=== PATIENT | female | born 1930 | race Caucasian/White ===

== ENCOUNTER 2016-11-26 13:49 | Emergency (ER) | payer OTHER ==
--- NOTE | 2016-11-26 14:17 | EDPHY ---
H & P Stated Complaint: F[place] [facility] [place] [facility] [place] HEAD AND R WRIST/DENIES LOC OR NECK PAIN - Personal History Current Tetanus/Diphtheria Vaccine: Yes Tetanus Vaccine Date: < 10 YRS - Medical/Surgical History Hx Asthma: No Hx Chronic Respiratory Disease: No Hx Diabetes: No Hx Cardiac Disease: No Hx Renal Disease: No Hx Cirrhosis: No Hx Alcoholism: No Hx HIV/AIDS: No Hx Splenectomy or Spleen Trauma: No Other PMH: hip and knee surgery - Social History Smoking Status: Never smoked Time Seen by Provider: 11/26/16 14:07 HPI/ROS: CHIEF COMPLAINT: Mechanical fall hit head, right wrist pain and head injury HISTORY OF PRESENT ILLNESS: 86-year-old female with no anticoagulant use sustained a purely mechanical fall when she tripped on a speed bump in the parking lot of [facility] when she was EN route to have a mammogram performed. She fell on outstretched right hand and is complaining of right wrist pain and also impacted her right frontal region of her head with no loss of consciousness. No nausea or vomiting. No midline C-spine pain. No peripheral paresthesia, weakness, numbness. No chest pain. No dyspnea. Tetanus up-to-date PRIMARY CARE PROVIDER:Dr. Ruby Waldrop, [facility] REVIEW OF SYSTEMS: A ten point review of systems was performed and is negative with the exception of the items mentioned in the HPI PAST MEDICAL/SURGICAL HISTORY: no anticoagulant use SOCIAL HISTORY: denies alcohol use at time of incident PHYSICAL EXAM 1) GENERAL: Well-developed, well-nourished, alert and oriented. Appears to be in no acute distress. Answering questions appropriately. 2) HEAD: Normocephalic, right frontal hematoma.abrasion and ecchymosis 3) HEENT: Pupils equal, round, reactive to light bilaterally. Negative Horners. Nasopharynx, oropharynx, clear. No deformity or angulation of nose. No septal hematoma. No rhinorrhea. No oral trauma. Ears bilaterally with normal tympanic membranes. No hemotympanum. No fluid or blood in the external auditory canal. No raccoon eyes. No Bowling sign. Teeth are normally aligned with no gross malocclusion, TMJ bilaterally nontender, facial bones nontender including the zygomatic arch, maxilla mandible. 4) NECK: No cervical collar is on. Posterior cervical spine is nontender, no stepoff, no effusion. Full range of motion which does not elicit any midline cervical spine pain, no posterior midline tenderness, no step-off. 5) LUNGS: Clear to auscultation bilaterally, no wheezes, no rhonchi, no retractions. No obvious signs of trauma. No chest wall pain. No flaring, no grunting. Moving symmetrically. No crepitus. 6) HEART: Regular rate and rhythm, 7) ABDOMEN: No guarding, no rebound, no focal tenderness, no peritoneal signs, no signs of trauma, no ecchymosis 8) MUSCULOSKELETAL: Right upper extremity: Deformity to the the wrist with associated tenderness.. Intact skin. Radial ulnar median nerve function intact. Hand nontender. Proximal forearm, elbow, humerus and shoulder nontender. otherwise, Moving all extremities, no focal areas of tenderness, no obvious trauma. 9) BACK: No midline vertebral tenderness, no fluctuance, no step-off, no obvious trauma, no visual or palpable abnormality. 10) SKIN: abrasion to forehead DIFFERENTIAL DIAGNOSIS: Not necessarily in any particular order, my differential diagnosis includes, but is not limited to, concussion, skull fracture, intraparenchymal contusion, subarachnoid, subdural and epidural hematoma, wrist fracture, sprain, dislocation (Felice Rivera) Constitutional: Initial Vital Signs Temperature (C) 36.4 C 11/26/16 13:52 Heart Rate 64 11/26/16 13:52 Respiratory Rate 18 11/26/16 13:52 Blood Pressure 131/60 H 11/26/16 13:52 O2 Sat (%) 94 11/26/16 13:52 O2 Delivery Mode Room Air Allergies/Adverse Reactions: SENISTIVE TO DIARY Allergy (Intermediate, Uncoded 11/26/16 13:50) ITCHING/DIARRHEA Home Medications: Medication Instructions Recorded Levothyroxine [Synthroid 50 mcg 50 mcg PO DAILY06 01/26/13 (RX)] Losartan Potassium [Cozaar] 100 mg PO DAILY 01/26/13 Aspirin [Aspirin 81mg (OTC)] 81 mg PO HS 02/02/13 Calcium Carbonate [Tums 500MG 500 - 1,000 mg PO PRN PRN 02/02/13 (OTC)] Herbals/Supplements -Info Only 1 each PO AD 02/02/13 Ibuprofen [Motrin 200 mg (OTC)] 200 mg PO BID PRN 02/02/13 Multivitamins [Tab-A-Fabby] 1 each PO DAILY 02/02/13 Naproxen Sodium [Aleve 220 mg 220 mg PO BID PRN 02/02/13 (OTC)] Atenolol [Tenormin 25 mg (RX)] 25 mg PO DAILY 02/14/13 oxyCODONE/APAP 5/325 [Percocet 1 tab PO Q6 #10 tab 11/26/16 5/325] Medical Decision Making - Diagnostics Imaging Results: Imaging Impressions Head CT 11/26/16 14:13 Impression: 1. Moderate atrophy. 2. No acute hemorrhage, hydrocephalus, or mass effect. 3. Cerebrovascular atherosclerosis. 4. No definite acute infarct. 5. Moderate microvascular ischemic gliosis. 6. Right frontal scalp hematoma. 7. No epidural or subdural hematoma. Findings and recommendations discussed with Emergency Department physician, Felice Rivera PAC at 14:42 hour, 11/26/2016. Final report concurs with initial preliminary interpretation. Wrist X-Ray 11/26/16 14:13 Impression: Comminuted displaced intra-articular fracture of the distal radius and ulna as above. Wrist X-Ray 11/26/16 15:15 Impression: 1. Acute impacted intra-articular distal right radius fracture with persistent dorsal angulation. 2. Oblique nondisplaced distal ulnar fracture. Images reviewed by myself (Felice Rivera) Procedures: Procedure: Fracture reduction Indication: Fracture of the Distal radius Indications, risks and benefits discussed with patient and consent obtained. A hematoma block of 0.5% bupivicaine placed by myself. Traction and countertraction applied achieving a visible and palpable reduction. The area was splinted with Sugar-tong Orthoglass splint and sling. After application of the splint I returned and re-examined the patient. The splint was adequately immobilizing the joint and distal to the splint the patient's circulation and sensation were intact. Patient shows no signs of compartment syndrome. Was given orthopedic precautions. (Felice Rivera) ED Course/Re-evaluation: 2:14 p.m.: Head CT ordered in this patient for trauma for the following indication: age greater than 65 years old, anticoagulated. 4:09 p.m.: Phone consultation with Dr. Richard Vance who recommended follow up in office. Patient feels comfortable being discharged. Provider usual customary head injury and orthopedic precautions and instructions. (Felice Rivera) I did not see this patient while she was in the emergency department. However her care was discussed with the PA while the patient was in the department. I agree with treatment plan management (PiedadPaco Frances) Departure - Departure Disposition: Home, Routine, Self-Care Clinical Impression: Head injury due to trauma Qualifiers: Encounter type: initial encounter Qualified Code(s): S09.90XA - Unspecified injury of head, initial encounter Distal radius fracture, right Qualifiers: Encounter type: initial encounter Fracture type: closed Fracture morphology: other intra-articular Qualified Code(s): S52.571A - Other intraarticular fracture of lower end of right radius, initial encounter for closed fracture Distal end of ulna fracture, closed Qualifiers: Encounter type: initial encounter Fracture morphology: other fracture Laterality: right Qualified Code(s): S52.691A - Other fracture of lower end of right ulna, initial encounter for closed fracture Condition: Good Instructions: Wrist Fracture in Adults (ED), Head Injury (ED) Additional Instructions: Return to the ER immediately if you experience discoloration, have worsening pain, numbness, tingling, or any other symptoms that concern you. If you received x-rays in the emergency department today, be advised, that ligamentous , tendon, muscular, and other non-bony injury cannot be fully ruled out. Try to keep your affected extremity elevated above the level of your chest, and keep cold packs on the affected area, for the next 48 hours. ALTHOUGH THERE IS NO EVIDENCE OF SERIOUS HEAD INJURY AT THIS TIME, DELAYED SIGNS CAN APPEAR 24 TO 48 HOURS AFTER INJURY. WE RECOMMEND THAT YOU DESIGNATE A FRIEND OR FAMILY MEMBER TO OBSERVE YOU OVER THE NEXT FEW DAYS TO ENSURE THAT YOUR CONDITION IS PROGRESSING NORMALLY. PLEASE RETURN TO THE EMERGENCY DEPARTMENT (ED) IMMEDIATELY IF YOU HAVE INCREASED HEADACHE, PERSISTENT HEADACHE , VOMITING, WEAKNESS, CONFUSION OR VISUAL PROBLEMS. WE RECOMMEND THAT YOU DO NOT RESUME CONTACT SPORTS OR ACTIVITIES THAT TAKE COORDINATION OR BALANCE SUCH SKIING OR RIDING A BICYCLE UNTIL CLEARED TO DO SO BY YOUR DOCTOR OR BY A NEUROLOGIST. Referrals: Ruby Waldrop MD [[facility] Primary Care Provider] - 1-2 days without fail Richard Vance MD [Medical Doctor] - 1-2 days without fail (Dr. Richard Vance is an orthopedic surgeon) Prescriptions: oxyCODONE/APAP [Percocet ] 1 tab PO Q6 #10 tab
[2016-11-26 16:31] VITALS: BP 158/83; PULSE 78; RESP 20; TEMP 97.7; O2SAT 97
== END 2016-11-26 16:31 | disposition home or self-care (01) ==
PROC: 0PSHXZZ Reposition Right Radius, External Approach (ICD-10-PCS; principal; 2016-11-26)
DX: S52.571A Other intraarticular fracture of lower end of right radius, initial encounter for closed fracture (principal); S52.691A Other fracture of lower end of right ulna, initial encounter for closed fracture; S09.90XA Unspecified injury of head, initial encounter; Z79.82 Long term (current) use of aspirin; W01.198A Fall on same level from slipping, tripping and stumbling with subsequent striking against other object, initial encounter; Y92.481 Parking lot as the place of occurrence of the external cause
CPT/HCPCS: 25605; 70450; 73110; 99284; A4565

== ENCOUNTER 2016-12-04 10:20 | Day surgery (SDC) | payer OTHER ==
[~2016-12-04 10:20] MED LIST: ACETAMINOPHEN 500 MG TAB PO ONE; BUPIVACAINE 0.5% 30 ML SDV ONE; CHLORHEXIDINE GLUC HIBICLENS 118 ML BTL TP ONE; ceFAZolin 2 GM/DEXTROSE 100 ML IV ONE
[2016-12-04] MEDS ORDERED: ACETAMINOPHEN 500 MG TAB ONE (11:15)
[2016-12-04] MEDS ORDERED: CEFAZOLIN 2 GM/DEXTROSE/100 ML BAG IV ONE (11:15)
[2016-12-04] MEDS ORDERED: LIDOCAINE 0.5% 50 ML SDV ONE (11:29)
[2016-12-04] MEDS ORDERED: PROPOFOL 200 MG/20 ML VIAL ONE (11:29)
[2016-12-04] MEDS ORDERED: fentaNYL 100 MCG/2 ML INJ ONE ×3 (11:29→14:08)
[2016-12-04] MEDS ORDERED: ONDANSETRON 4 MG/2 ML VIAL ONE (12:39)
[2016-12-04] MEDS ORDERED: DEXAMETHASONE 4 MG/ML VIAL ONE (12:39)
[2016-12-04] MEDS ORDERED: oxyCODONE IR 5 MG TAB PO PRN (14:33)
[2016-12-04] MEDS ORDERED: oxyCODONE IR 5 MG TAB ONE (15:28)
== END 2016-12-04 16:30 | disposition home or self-care (01) ==
LOC: FSGY 10:20
PROVIDERS: ATTEND Orthopaedic Surgery
PROC: 0PSK04Z Reposition Right Ulna with Internal Fixation Device, Open Approach (ICD-10-PCS; principal; 2016-12-04 11:30)
PROC: 0PSH04Z Reposition Right Radius with Internal Fixation Device, Open Approach (ICD-10-PCS; principal; 2016-12-04 11:30)
DX: S52.551A Other extraarticular fracture of lower end of right radius, initial encounter for closed fracture (principal); S52.691A Other fracture of lower end of right ulna, initial encounter for closed fracture; W19.XXXA Unspecified fall, initial encounter; Y92.481 Parking lot as the place of occurrence of the external cause; M25.531 Pain in right wrist; E03.9 Hypothyroidism, unspecified; M85.80 Other specified disorders of bone density and structure, unspecified site; I10 Essential (primary) hypertension
CPT/HCPCS: C1713; J0690; J1100; J2405; J2704; J3010

== ENCOUNTER → 2017-01-06 | Outpatient (CLI) | payer OTHER | LOC: BMCIMAGING 10:28 | PROVIDERS: ATTEND Physician Assistant | DX: Z47.89 Encounter for other orthopedic aftercare (principal); S52.501A Unspecified fracture of the lower end of right radius, initial encounter for closed fracture; S52.691A Other fracture of lower end of right ulna, initial encounter for closed fracture; R93.6 Abnormal findings on diagnostic imaging of limbs ==

== ENCOUNTER → 2017-01-15 | Outpatient (CLI) | payer OTHER | LOC: BMCIMAGING 10:59 | PROVIDERS: ATTEND Internal Medicine | DX: N63 Unspecified lump in breast (principal) | CPT/HCPCS: 76641; G0204 ==

== ENCOUNTER → 2017-02-04 | Outpatient (CLI) | payer OTHER | LOC: BMCIMAGING 14:19 | PROVIDERS: ATTEND Orthopaedic Surgery | DX: S52.501D Unspecified fracture of the lower end of right radius, subsequent encounter for closed fracture with routine healing (principal) ==

== ENCOUNTER → 2017-04-08 | Outpatient (CLI) | payer OTHER | END | disposition home or self-care (01) | LOC: BMCIMAGING 11:06 | PROVIDERS: ATTEND Orthopaedic Surgery | DX: S52.551D Other extraarticular fracture of lower end of right radius, subsequent encounter for closed fracture with routine healing (principal); S52.691D Other fracture of lower end of right ulna, subsequent encounter for closed fracture with routine healing; W19.XXXD Unspecified fall, subsequent encounter ==

== ENCOUNTER → 2018-09-27 | Outpatient (CLI) | payer OTHER | LOC: FIMAGING 09:05 | PROVIDERS: ATTEND Internal Medicine | DX: Z12.31 Encounter for screening mammogram for malignant neoplasm of breast (principal); Z13.820 Encounter for screening for osteoporosis; Z13.6 Encounter for screening for cardiovascular disorders; M85.89 Other specified disorders of bone density and structure, multiple sites; Z78.0 Asymptomatic menopausal state ==